=== PATIENT | female | born 1960 | race Caucasian/White ===

== ENCOUNTER → 2017-03-30 | Outpatient (REF) | payer BC | LOC: M SFHCLERA 09:48 | PROVIDERS: ATTEND Nurse Practitioner Family | DX: J02.9 Acute pharyngitis, unspecified (principal) ==

== ENCOUNTER → 2020-04-02 | Outpatient (REF) | payer BC | LOC: M LAB REF 12:53 | PROVIDERS: ATTEND Physician Assistant | DX: J02.9 Acute pharyngitis, unspecified (principal) ==

== ENCOUNTER → 2020-08-19 | Outpatient (CLI) | payer BC ==
--- NOTE | 2020-08-19 15:23 | REP ---
INDICATION: CHR VENOUS HTN W/ ULCER LLE, CALCINOSIS CUTIS COMPARISON: None. TECHNIQUE: George scale and color Doppler evaluation using linear high frequency transducer with reflux evaluation. FINDINGS: Ultrasound examination of the left lower extremity deep venous structures from the common femoral vein to the popliteal vein demonstrates normal compressibility flow and wave patterns in response to respiration and augmentation. There is no evidence for deep venous thrombosis. Evaluation for reflux is normal and there is no reflux noted through the superficial or deep system. IMPRESSION: No evidence for deep venous thrombosis. No evidence for reflux disease. <Electronically signed by Tim Crowley > 08/19/20 [id number]
== END ==
LOC: M RAD 08:52
PROVIDERS: ATTEND Surgery
DX: L94.2 Calcinosis cutis (principal); I87.312 Chronic venous hypertension (idiopathic) with ulcer of left lower extremity; L97.822 Non-pressure chronic ulcer of other part of left lower leg with fat layer exposed